=== PATIENT | male | born 1975 ===

== ENCOUNTER 2018-06-20 17:43 | Emergency (ER) | payer OTHER ==
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
[2018-06-20] MEDS ORDERED: KETOROLAC 30 MG/ML VIAL IM ONE (18:00)
[2018-06-20] MEDS ORDERED: ORPHENADRINE 60MG/2ML INJ IM ONE (18:00)
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
[2018-06-20] MEDS ORDERED: CYCL10TA29 PO (19:20)
[2018-06-20] MEDS ORDERED: OXYC-865 PO (19:20)
[2018-06-20] MEDS ORDERED: CYCLOBENZAPRINE HCL 10 MG TH PO ONE (19:25)
[2018-06-20] MEDS ORDERED: oxyCODONE/ACETAMIN 5/325MG TH 2 TAB/BOTTLE PO ONE (19:25)
[2018-06-20 19:30] VITALS: BP 115/72
== END 2018-06-20 19:28 | disposition home or self-care (01) ==
LOC: ER 17:51
DX: S39.012A Strain of muscle, fascia and tendon of lower back, initial encounter (principal); V44.9XXA Unspecified car occupant injured in collision with heavy transport vehicle or bus in traffic accident, initial encounter
CPT/HCPCS: 72125; 72131; 96372; 99284; J1885; J2360